=== PATIENT | female | born 1980 | race Caucasian/White ===

== ENCOUNTER 2017-10-31 10:24 | Emergency (ER) | payer OTHER ==
[~2017-10-31] VITALS: Ht 170.2 cm; Wt 69.4 kg
[2017-10-31 10:44] VITALS: BP 119/76
--- NOTE | 2017-10-31 10:50 | NUR ---
PT AMBULATED TO BED 8. REPORT GIVEN TO FIGUEROA VALADEZ.
--- NOTE | 2017-10-31 10:58 | NUR ---
36 YO F TO ER WITH CO VAGINAL BLEEDING. VAGINAL BLEEDING X8 DAYS WITH PELVIC PAIN AND VAGINAL PAIN; PT STATES SHE WAS BLEEDIG FOR 16 DAYS STARTING 09/30/17 PRIOR TO THIS EPISODE AND STOPPED FOR A WEEK AND RESTARTED BLEEDING 10/23/17, X2 PADS TODAY. PELVIC PAIN THAT RADIATES TO LLQ, TENDER ON PALPATION, BS HYOACTIVE X4, PAIN 8/10. PT DENIES ANY N/V/D. ER MD MADE AWARE. WILL CONTINUE TO MONITOR HX: HYPOTHYROID, IBS SURGICAL HX: GALLBLADDER, HERNIA
[2017-10-31] MEDS ORDERED: oxyCODONE/APAP 5/325 MG 1 TAB TAB PO ONE (11:30)
--- NOTE | 2017-10-31 11:36 | NUR ---
ULTRASOUND AT BEDSIDE
[2017-10-31 11:57] LABS: APPEARANCE,URINE HAZY (CLEAR); BILIRUBIN,URINE NEGATIVE (NEGATIVE); BLOOD, URINE 3+ (NEGATIVE); COLOR,URINE RED (YELLOW); LEUKOCYTE ESTERASE ,URINE NEGATIVE (NEGATIVE); NITRITE, URINE NEGATIVE (NEGATIVE); PH,URINE 6.5 (5.0-9.0); UGLUCOSE NEGATIVE (NEGATIVE)
[2017-10-31 12:00] LABS: PROTHROMBIN TIME 11.5 secs (10.8-13.4)
[2017-10-31 12:02] LABS: BASOPHILS % (AUTO) 0.5 % (0.0-2.0); EOSINOPHILS # (AUTO) 0.1 K/uL (0-0.4); EOSINOPHILS % (AUTO) 1.7 % (0.0-4.0); HEMATOCRIT 40.1 % (36-48); HEMOGLOBIN 13.7 g/dL (12.0-16.0); LYMPHOCYTES # (AUTO) 1.2 K/uL (2.5-16.5); LYMPHOCYTES % (AUTO) 13.4 % (20.5-51.1); MEAN CORPUSCULAR HEMOGLOBIN 30 pg (27-31); MEAN CORPUSCULAR HGB CONC 34 g/dL (33-37); MEAN CORPUSCULAR VOLUME 88.5 fL (80-94); MONOCYTES # (AUTO) 0.4 K/uL (0.8-1.0); MONOCYTES % (AUTO) 4.2 % (1.7-9.3); NEUTROPHILS # (AUTO) 6.9 K/uL (1.8-7.7); NEUTROPHILS % (AUTO) 80.2 % (42.2-75.2); PLATELET COUNT (AUTO) 135 K/uL (140-450); RED BLOOD CELL COUNT(AUTO) 4.53 MIL/uL (4.20-5.40); RED CELL DISTRIBUTION WIDTH 12.9 % (11.6-13.7); WHITE BLOOD COUNT (AUTO) 8.6 K/uL (4.8-10.8)
[2017-10-31 12:05] LABS: RBC,URINE 11-20 (MOD) /HPF (0-5); WBC,URINE 0-5 (RARE) /HPF (0-5)
--- NOTE | 2017-10-31 14:00 | NUR ---
PT RESTING IN STABLE CONDITION
[2017-10-31 15:29] VITALS: BP 99/49
--- NOTE | 2017-10-31 15:30 | NUR ---
Patient discharged with v/s stable. Written and verbal after care instructions given and explained. Patient alert, oriented and verbalized understanding of instructions. Ambulatory with steady gait. All questions addressed prior to discharge. ID band removed. Patient advised to follow up with PMD. Rx of norco, hormone given. Patient educated on indication of medication including possible reaction and side effects. Opportunity to ask questions provided and answered.
== END 2017-10-31 15:30 | disposition home or self-care (01) ==
LOC: MED 10:24
DX: N83.202 Unspecified ovarian cyst, left side (principal); N93.8 Other specified abnormal uterine and vaginal bleeding; E07.9 Disorder of thyroid, unspecified; Z88.1 Allergy status to other antibiotic agents; Z90.49 Acquired absence of other specified parts of digestive tract
CPT/HCPCS: 36415; 76830; 81001; 81025; 84702; 85025; 85610; 85730; 99285

== ENCOUNTER 2018-08-10 12:12 | Emergency (ER) | payer OTHER ==
[~2018-08-10] VITALS: Ht 170.2 cm; Wt 71.2 kg
[2018-08-10 12:15] VITALS: BP 128/99
[2018-08-10] MEDS ORDERED: KETOROLAC 60 MG/2 ML VIAL IM ONE (12:40)
--- NOTE | 2018-08-10 12:41 | NUR ---
PATIENT PRESENTS TO ED WITH C/O UMBILICAL REGION PULLING /SHARP PAIN RADIATING TO GROIN X 1 MONTH DENIES DYSURIA DENIES VAG DC OR RECENT INJURY/TRAUMA . DENIES N/V/D; SKIN IS PINK/WARM/DRY; AAOX4 WITH EVEN AND STEADY GAIT; LUNGS CLEAR BL; HR EVEN AND REGULAR; PT DENIES ANY FEVER, CP, SOB, OR COUGH AT THIS TIME; PATIENT STATES PAIN OF 9/10 AT THIS TIME; VSS; PATIENT POSITIONED FOR COMFORT; HOB ELEVATED; BEDRAILS UP X2; BED DOWN. ER MD MADE AWARE OF PT STATUS.
--- NOTE | 2018-08-10 13:15 | NUR ---
ULTRASOUND AT BEDSIDE
[2018-08-10 15:05] VITALS: BP 127/72
--- NOTE | 2018-08-10 15:05 | NUR ---
Patient discharged with v/s stable. Written and verbal after care instructions given and explained. Patient alert, oriented and verbalized understanding of instructions. Ambulatory with steady gait. All questions addressed prior to discharge. ID band removed. Patient advised to follow up with PMD. Rx of NORCO AND NAPROSYN given. Patient educated on indication of medication including possible reaction and side effects. Opportunity to ask questions provided and answered.
== END 2018-08-10 15:05 | disposition home or self-care (01) ==
LOC: MED 12:12
DX: N83.201 Unspecified ovarian cyst, right side (principal); I10 Essential (primary) hypertension; E05.90 Thyrotoxicosis, unspecified without thyrotoxic crisis or storm; F17.200 Nicotine dependence, unspecified, uncomplicated; Z90.49 Acquired absence of other specified parts of digestive tract; Z88.1 Allergy status to other antibiotic agents
CPT/HCPCS: 76830; 81002; 81025; 93976; 96372; 99284; J1885; Q0092

== ENCOUNTER 2018-10-13 21:36 | Emergency (ER) | payer OTHER ==
[~2018-10-13] VITALS: Ht 152.4 cm; Wt 70.3 kg
[2018-10-13 22:00] VITALS: BP 111/66
--- NOTE | 2018-10-13 22:02 | NUR ---
37 Y/O FEMALE PRESENTS TO ED WITH C/O LLQ ABD PAIN X1 DAY. ALSO C/O NAUSEA WITHOUT VOMITING. 8/10 PAIN. VSS. NO PAST MEDICAL HX. X4 QUADRANT BOWEL SOUNDS PRESENT. NO CHANGE IN URINATION. POSITIONED IN BED FOR COMFORT. ER MD AWARE. CONTINUE TO MONITOR.
--- NOTE | 2018-10-13 22:02 | NUR ---
TO LOBBY A/W BED, AMBULATORY
[2018-10-13] MEDS ORDERED: NACL 0.9% 1,000 ML IV ONE (22:58)
[2018-10-13] MEDS ORDERED: ONDANSETRON 4 MG/2 ML VIAL IVP ONE (23:00)
[2018-10-13] MEDS ORDERED: KETOROLAC 30 MG/ML VIAL IVP ONE (23:00)
[2018-10-13 23:30] LABS: BASOPHILS # (AUTO) 0.1 K/uL (0.00-0.22); BASOPHILS % (AUTO) 0.8 % (0.0-2.0); EOSINOPHILS # (AUTO) 0.2 K/uL (0-0.4); EOSINOPHILS % (AUTO) 3.1 % (0.0-4.0); HEMATOCRIT 37.5 % (36-48); HEMOGLOBIN 12.9 g/dL (12.0-16.0); LYMPHOCYTES # (AUTO) 1.9 K/uL (2.5-16.5); LYMPHOCYTES % (AUTO) 27.7 % (20.5-51.1); MEAN CORPUSCULAR HEMOGLOBIN 31 pg (27-31); MEAN CORPUSCULAR HGB CONC 35 g/dL (33-37); MEAN CORPUSCULAR VOLUME 89.3 fL (80-94); MONOCYTES # (AUTO) 0.3 K/uL (0.8-1.0); MONOCYTES % (AUTO) 4.8 % (1.7-9.3); NEUTROPHILS # (AUTO) 4.4 K/uL (1.8-7.7); NEUTROPHILS % (AUTO) 63.6 % (42.2-75.2); PLATELET COUNT (AUTO) 150 K/uL (140-450); RED CELL DISTRIBUTION WIDTH 12.8 % (11.6-13.7); WHITE BLOOD COUNT (AUTO) 6.9 K/uL (4.8-10.8)
[2018-10-13 23:38] LABS: ANION GAP 11.4 (8-16); CARBON DIOXIDE 28.6 mmol/L (21-32); CREATININE 0.7 mg/dL (0.6-1.3)
[2018-10-13 23:45] LABS: ALBUMIN 3.5 g/dL (3.4-5.0); TOTAL BILIRUBIN 0.3 mg/dL (0.0-1.0)
[2018-10-14 00:25] VITALS: BP 112/64
--- NOTE | 2018-10-14 00:25 | NUR ---
Patient discharged with v/s stable. Written and verbal after care instructions given and explained. Patient alert, oriented and verbalized understanding of instructions. Ambulatory with steady gait. All questions addressed prior to discharge. ID band removed. Patient advised to follow up with PMD. Rx of MIRALAX AND MINERAL OIL given. Patient educated on indication of medication including possible reaction and side effects. Opportunity to ask questions provided and answered.
== END 2018-10-14 00:25 | disposition home or self-care (01) ==
LOC: MED 21:36
DX: R10.9 Unspecified abdominal pain (principal); R11.0 Nausea; R63.0 Anorexia; I10 Essential (primary) hypertension; E03.9 Hypothyroidism, unspecified; Z90.49 Acquired absence of other specified parts of digestive tract; Z88.1 Allergy status to other antibiotic agents
CPT/HCPCS: 36415; 74176; 80053; 81002; 81025; 85025; 96374; 96375; 99284; J1885; J2405; J7030

== ENCOUNTER 2019-01-16 12:46 | Emergency (ER) | payer OTHER ==
[~2019-01-16] VITALS: Ht 167.6 cm; Wt 69.9 kg
[2019-01-16 12:51] VITALS: BP 133/101
[2019-01-16 13:18] LABS: BILIRUBIN,URINE NEGATIVE (NEGATIVE); BLOOD, URINE 3+ (NEGATIVE); COLOR,URINE YELLOW (YELLOW); LEUKOCYTE ESTERASE ,URINE TRACE (NEGATIVE); NITRITE, URINE NEGATIVE (NEGATIVE); UGLUCOSE NEGATIVE (NEGATIVE)
[2019-01-16 13:26] LABS: APPEARANCE,URINE HAZY (CLEAR)
[2019-01-16 13:30] LABS: WBC,URINE 0-5 /HPF (0-5)
[2019-01-16 13:59] VITALS: BP 133/101
== END 2019-01-16 13:57 | disposition home or self-care (01) ==
LOC: MED 12:46
DX: N39.0 Urinary tract infection, site not specified (principal); I10 Essential (primary) hypertension; E03.9 Hypothyroidism, unspecified; F17.210 Nicotine dependence, cigarettes, uncomplicated; Z90.49 Acquired absence of other specified parts of digestive tract; Z98.890 Other specified postprocedural states; Z88.1 Allergy status to other antibiotic agents
CPT/HCPCS: 81001; 81025; 99283

== ENCOUNTER 2020-08-16 13:13 | Emergency (ER) | payer OTHER ==
[~2020-08-16] VITALS: Ht 170.2 cm; Wt 72.1 kg
[2020-08-16 13:22] VITALS: BP 118/72
--- NOTE | 2020-08-16 13:24 | NUR ---
PT SENT TO LOBBY TO WAIT FOR AVAILABLE BED.
--- NOTE | 2020-08-16 13:45 | NUR ---
Patient ambulated to bed 11 with a steady gait.
--- NOTE | 2020-08-16 13:50 | NUR ---
Patient is a 39 y/o female c/c neck pain for over a month. Pain is constant, 7/10 today. Patient denies injury or trauma. Patient denies CP, SOB, headache, dizziness or blurry vision. PMH: Rheumatoid arthritis, Sjogren's syndrom, Hysterectomy 2019 Meds: Folic acid, Prednisone 5mg, Pilocarpin, Hydroxychloroquin 200mg, Sulfasalazine, Allergies: Cephalexin
[2020-08-16] MEDS ORDERED: KETOROLAC 30 MG/ML VIAL IM ONE (14:45)
--- NOTE | 2020-08-16 15:15 | NUR ---
Patient returned from x-ray. RN reevaluating the patient at bedside.
[2020-08-16] MEDS ORDERED: IBUP-2213 PO (15:46)
[2020-08-16 15:58] VITALS: BP 118/72
== END 2020-08-16 15:59 | disposition home or self-care (01) ==
LOC: MED 13:13
DX: S16.1XXA Strain of muscle, fascia and tendon at neck level, initial encounter (principal); I10 Essential (primary) hypertension; E03.9 Hypothyroidism, unspecified; Z90.49 Acquired absence of other specified parts of digestive tract; X58.XXXA Exposure to other specified factors, initial encounter; Y93.89 Activity, other specified; Y92.89 Other specified places as the place of occurrence of the external cause; Y99.8 Other external cause status
CPT/HCPCS: 72040; 96372; 99283; J1885

== ENCOUNTER 2021-01-28 15:44 | Emergency (ER) | payer OTHER ==
[~2021-01-28] VITALS: Ht 165.1 cm; Wt 75.3 kg
[~2021-01-28 15:44] MED LIST: IBUP-2213 PO
[2021-01-28 15:50] VITALS: BP 104/79
--- NOTE | 2021-01-28 15:55 | NUR ---
40 YO FEMALE BIBS C/O 9/10 BACK PAIN X2DAYS, PAIN WORSENED THIS MORNING. PATIENT DESCRIBES PAIN THROBBING, THAT RADIATES DOWN RIGHT LEG. DENIES URINARY S/S. PLACED IN GOWN, URINE SAMPLE COLLECTED. PATIENT IS A&OX4, VSS. PMH RHEUMATOID ARTHRITIS ALLERGIES CEPHALEXIN
[2021-01-28] MEDS ORDERED: CYCLOBENZAPRINE 10 MG TAB PO ONE (16:05)
[2021-01-28] MEDS ORDERED: KETOROLAC 30 MG/ML VIAL IM ONE (16:05)
[2021-01-28] MEDS ORDERED: LIDO1ADH47 TP (16:53)
[2021-01-28] MEDS ORDERED: ACET-8386 PO (16:53)
--- NOTE | 2021-01-28 17:13 | NUR ---
Patient discharged with v/s stable. Written and verbal after care instructions given and explained. Patient alert, oriented and verbalized understanding of instructions. Ambulatory with steady gait. All questions addressed prior to discharge. ID band removed. Patient advised to follow up with PMD. Rx of NORCO, LIDOCAINE PATCH given. Patient educated on indication of medication including possible reaction and side effects. Opportunity to ask questions provided and answered.
== END 2021-01-28 17:13 | disposition home or self-care (01) ==
LOC: MED 15:44
DX: M54.30 Sciatica, unspecified side (principal); G89.29 Other chronic pain; M54.9 Dorsalgia, unspecified; I10 Essential (primary) hypertension; E03.9 Hypothyroidism, unspecified; Z88.1 Allergy status to other antibiotic agents
CPT/HCPCS: 81002; 81025; 96372; 99283; J1885

== ENCOUNTER 2021-07-04 10:34 | Emergency (ER) | payer OTHER ==
[~2021-07-04] VITALS: Ht 170.2 cm; Wt 75.3 kg
[~2021-07-04 10:34] MED LIST changes: +ACET-8386 PO; +LIDO1ADH47 TP
[2021-07-04 10:38] VITALS: BP 137/99
[2021-07-04] MEDS ORDERED: KETOROLAC 30 MG/ML VIAL IVP ONE (10:45)
--- NOTE | 2021-07-04 11:00 | NUR ---
DR FLAHERTY AT BEDSIDE.
[2021-07-04] MEDS ORDERED: ONDANSETRON 4 MG/2 ML VIAL IVP ONE (11:25)
[2021-07-04] MEDS ORDERED: ONDA8TAB87 PO (11:32)
[2021-07-04] MEDS: NACL 0.9% 1,000 ML IV SCH ×2 (11:32→11:33)
[2021-07-04] MEDS ORDERED: IBUP-2213 PO (11:32)
[2021-07-04] MEDS ORDERED: CIPR500T4 PO (11:32)
--- NOTE | 2021-07-04 11:41 | NUR ---
40 Y/O F C/O LOWER ABD PAIN 7/10 FOR 3 DAYS. PAIN RADIATES TO LOWER BACK. PT STATED SHE FELT "LITTLE SPACED" THIS MORNING. PT ALSO C/O FREQUENT URINATION. ALLERGIES: CEPHALEXIN PMH: RHEUMATOID ARTHRITIS, IBS, HYSTERECTOMY
--- NOTE | 2021-07-04 11:42 | NUR ---
40/F BIB SELF WITH C/O LOWER ABDOMINAL PAIN RADIATING TO HER LOWER BACK X3 DAYS. PATIENT DENIES TAKING ANYTHING FOR HER SYMPTOMS, STATES SHE HAS BEEN HAVING FREQUENT URINATION, DENIES DYSURIA, HEMATURIA, FEVER, CHILLS, N/V/D.
--- NOTE | 2021-07-04 11:55 | NUR ---
Patient discharged with v/s stable. Written and verbal after care instructions given and explained. Patient alert, oriented and verbalized understanding of instructions. Ambulatory with steady gait. All questions addressed prior to discharge. ID band removed. Patient advised to follow up with PMD. Rx of IBUPROFEN, ONDANSETRON HCI, CIPROFLOXACIN given. Opportunity to ask questions provided and answered.
--- NOTE | 2021-07-04 11:55 | NUR ---
The patient's care was reviewed and supervised by Maye Taveras RN.
== END 2021-07-04 11:55 | disposition home or self-care (01) ==
LOC: MED 10:34
DX: N39.0 Urinary tract infection, site not specified (principal); R11.0 Nausea; F17.200 Nicotine dependence, unspecified, uncomplicated; E03.9 Hypothyroidism, unspecified; Z90.49 Acquired absence of other specified parts of digestive tract; Z90.710 Acquired absence of both cervix and uterus; Z88.1 Allergy status to other antibiotic agents; Z79.899 Other long term (current) drug therapy
CPT/HCPCS: 81002; 81025; 96361; 96374; 96375; 99284; J1885; J2405; J7030

== ENCOUNTER 2021-10-15 10:51 | Emergency (ER) | payer OTHER ==
[~2021-10-15] VITALS: Ht 170.2 cm; Wt 73.9 kg
[~2021-10-15 10:51] MED LIST changes: +CIPR500T4 PO; +ONDA8TAB87 PO
[2021-10-15 10:59] VITALS: BP 116/95
--- NOTE | 2021-10-15 11:09 | NUR ---
PT AMB TO BED 10.
--- NOTE | 2021-10-15 11:18 | NUR ---
XR AT PT BEDSIDE
--- NOTE | 2021-10-15 11:22 | NUR ---
40 Y/O FEMALE BIB SELF C/O COUGH, CHILLS, MID CHEST PAIN, SORE THROAT, BOWSER , CONGESTION, BODY ACHES X 2 DAYS. 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 PT HAD COVID TESTED NEGATIVE 2 DAYS AGO. PT STATES SHE HAS SOB, MILD CHEST PAIN, NON-PRODUCTIVE COUGH. PT O2 SAT 96% ROOM AIR. PATIENT PLACE ON MONITOR. BED LOCKED IN LOWEST POSITION, BED RAILX 1. PMH: ZAIRA PEREZROGENS
[2021-10-15] MEDS ORDERED: HYDROcodone/APAP 5/325 MG 1 TAB TAB PO ONE (11:55)
--- NOTE | 2021-10-15 12:26 | NUR ---
FLU/COVID COLLINS SWABS COLLECTED AND HANDED TO LAB
[2021-10-15] MEDS ORDERED: TRAM50TA1 PO (13:29)
[2021-10-15] MEDS ORDERED: ONDA-188 PO (13:29)
[2021-10-15] MEDS ORDERED: TAM75 PO (13:29)
[2021-10-15 13:55] VITALS: BP 132/74
--- NOTE | 2021-10-15 14:38 | NUR ---
Patient discharged with v/s stable. Written and verbal after care instructions given and explained. Patient alert, oriented and verbalized understanding of instructions. Ambulatory with steady gait. All questions addressed prior to discharge. ID band removed. Patient advised to follow up with PMD. Rx of ZOFRAN, TAMIFLU, ULTRAM given. Patient educated on indication of medication including possible reaction and side effects. Opportunity to ask questions provided and answered.
== END 2021-10-15 14:38 | disposition home or self-care (01) ==
LOC: MED 10:51
DX: J11.1 Influenza due to unidentified influenza virus with other respiratory manifestations (principal); Z20.822 Contact with and (suspected) exposure to COVID-19; E03.9 Hypothyroidism, unspecified; M06.9 Rheumatoid arthritis, unspecified; F17.210 Nicotine dependence, cigarettes, uncomplicated; Z71.6 Tobacco abuse counseling; Z90.49 Acquired absence of other specified parts of digestive tract; Z90.710 Acquired absence of both cervix and uterus; Z98.890 Other specified postprocedural states; Z79.899 Other long term (current) drug therapy; Z79.1 Long term (current) use of non-steroidal anti-inflammatories (NSAID); Z79.2 Long term (current) use of antibiotics; Z79.891 Long term (current) use of opiate analgesic; Z88.1 Allergy status to other antibiotic agents
CPT/HCPCS: 71045; 87426; 87804; 99284; Q0092

== ENCOUNTER 2022-01-15 20:12 | Emergency (ER) | payer OTHER ==
[~2022-01-15] VITALS: Ht 170.2 cm; Wt 72.6 kg
[~2022-01-15 20:12] MED LIST changes: +ONDA-188 PO; +TAM75 PO; +TRAM50TA1 PO
[2022-01-15 20:13] VITALS: BP 108/60
--- NOTE | 2022-01-15 20:13 | NUR ---
PT BIBA ALS TO BED 11
--- NOTE | 2022-01-15 20:20 | NUR ---
PT BIBA FOR ALLERGIC REACTION, EMS PLACED PT IN BED 11, PT PLACED ON FLAVORING OIL FILTERER, PT C/O HIVES ON BACK AND THROAT SWELLING AFTER EATING PASTA, EMS ADMINISTERED 25MG BENADRYL, 0.3 EPI IM, AND 4 MG ZOFRAN PRIOR TO ARRIVAL, PT SPEAKING IN COMPLETE SENTENCES, SLIGHT HIVES ON BACK, AND THROAT PAIN, THROAT FEELS ALOT BETTER WITH MEDICATIONS. HX- RA
[2022-01-15] MEDS ORDERED: PRED20TA5 PO (20:47)
[2022-01-15] MEDS ORDERED: EPIN1KIT31 IM (20:47)
[2022-01-15 20:58] VITALS: BP 110/64
--- NOTE | 2022-01-15 20:58 | NUR ---
Patient discharged with v/s stable. Written and verbal after care instructions given and explained. Patient verbalized understanding. Ambulatory with steady gait. All questions addressed prior to discharge. Advised to follow up with PMD.
== END 2022-01-15 20:55 | disposition home or self-care (01) ==
LOC: MED 20:12
DX: T78.1XXA Other adverse food reactions, not elsewhere classified, initial encounter (principal); X58.XXXA Exposure to other specified factors, initial encounter; E03.9 Hypothyroidism, unspecified; M06.9 Rheumatoid arthritis, unspecified; F17.210 Nicotine dependence, cigarettes, uncomplicated; Z90.49 Acquired absence of other specified parts of digestive tract; Z90.710 Acquired absence of both cervix and uterus; Z98.890 Other specified postprocedural states; Z79.891 Long term (current) use of opiate analgesic; Z79.899 Other long term (current) drug therapy; Z79.1 Long term (current) use of non-steroidal anti-inflammatories (NSAID); Z79.2 Long term (current) use of antibiotics; Z88.1 Allergy status to other antibiotic agents
CPT/HCPCS: 99283

== ENCOUNTER 2022-03-09 15:28 | Emergency (ER) | payer OTHER ==
[~2022-03-09] VITALS: Ht 170.2 cm; Wt 74.4 kg
[~2022-03-09 15:28] MED LIST changes: +EPIN1KIT31 IM; +PRED20TA5 PO; +TRAM-748 PO; -TRAM50TA1 PO
[2022-03-09 15:34] VITALS: BP 125/90
--- NOTE | 2022-03-09 16:50 | NUR ---
c/o left leg and low back painx"months", per pt noted increased pain x5days allergy:KEFLEX pmh: RA, SJOGREN'S SYNDROME
[2022-03-09] MEDS ORDERED: KETOROLAC 30 MG/ML VIAL IM ONE (17:10)
[2022-03-09] MEDS ORDERED: CAPS1ADH5 TP (17:33)
[2022-03-09] MEDS ORDERED: NAPR-1704 PO (17:33)
--- NOTE | 2022-03-09 17:49 | NUR ---
Patient discharged with v/s stable. Written and verbal after care instructions FOR DEGENERATIVE DISK DISEASE AND SCIATICA given and explained. Patient alert, oriented and verbalized understanding of instructions. Ambulatory with steady gait. All questions addressed prior to discharge. ID band removed. Patient advised to follow up with PMD. Rx of NAPROXEN AND SALONPAS GEL HOT PATCH given. Opportunity to ask questions provided and answered.
--- NOTE | 2022-03-09 17:55 | NUR ---
The patient's care was reviewed and supervised by [facility], RN.
== END 2022-03-09 17:49 | disposition home or self-care (01) ==
LOC: MED 15:28
DX: M54.40 Lumbago with sciatica, unspecified side (principal); M51.36 Other intervertebral disc degeneration, lumbar region; E03.9 Hypothyroidism, unspecified; Z79.899 Other long term (current) drug therapy; Z88.1 Allergy status to other antibiotic agents; Z90.49 Acquired absence of other specified parts of digestive tract; Z98.890 Other specified postprocedural states; Z90.710 Acquired absence of both cervix and uterus
CPT/HCPCS: 72100; 81002; 81025; 96372; 99283; J1885

== ENCOUNTER 2022-04-12 10:40 | Emergency (ER) | payer OTHER ==
[~2022-04-12] VITALS: Ht 170.2 cm; Wt 74.4 kg
[~2022-04-12 10:40] MED LIST changes: +CAPS1ADH5 TP; +NAPR-1704 PO
[2022-04-12 10:52] VITALS: BP 122/76
--- NOTE | 2022-04-12 11:01 | NUR ---
PT AMB TO BED 11.
--- NOTE | 2022-04-12 11:06 | NUR ---
COVID, FLU SWABS DONE.
[2022-04-12] MEDS ORDERED: NIRM1TAB PO (12:41)
[2022-04-12 13:00] VITALS: BP 111/65
--- NOTE | 2022-04-12 13:00 | NUR ---
Patient discharged with v/s stable. Written and verbal after care instructions given and explained. Patient alert, oriented and verbalized understanding of instructions. Ambulatory with steady gait. All questions addressed prior to discharge. ID band removed. Patient advised to follow up with PMD. Rx of PAXLOVID given. Patient educated on indication of medication including possible reaction and side effects. Opportunity to ask questions provided and answered.
== END 2022-04-12 13:00 | disposition home or self-care (01) ==
LOC: MED 10:40
DX: U07.1 COVID-19 (principal); J10.1 Influenza due to other identified influenza virus with other respiratory manifestations; M06.9 Rheumatoid arthritis, unspecified; F17.210 Nicotine dependence, cigarettes, uncomplicated
CPT/HCPCS: 71045; 87426; 87804; 99284; Q0092

== ENCOUNTER 2022-06-09 11:56 | Emergency (ER) | payer OTHER ==
[~2022-06-09] VITALS: Ht 170.2 cm; Wt 76.2 kg
[~2022-06-09 11:56] MED LIST changes: -ACET-8386 PO; +ACET-8905 PO; +NIRM1TAB PO
[2022-06-09 11:59] VITALS: BP 125/73
--- NOTE | 2022-06-09 12:03 | NUR ---
41 y/o female bib self from home, c/o worsening back pain after bending over to pick something up. states she has hx of sciatica, "I know they told me I have it, but I don't really believe it". states pain radiates from back to hips with minimal numbing sensation. states it is hard to sit or stand for too long. a&ox4, ambulates with steady gait. pmh: sciatica, RA allergy: cephalexin
--- NOTE | 2022-06-09 12:07 | NUR ---
pt states she has outside emergency, lwbs at this time
== END 2022-06-09 12:14 | disposition left against medical advice (07) ==
LOC: MED 11:56
DX: M54.9 Dorsalgia, unspecified (principal); Z53.21 Procedure and treatment not carried out due to patient leaving prior to being seen by health care provider

== ENCOUNTER 2023-02-02 12:04 | Emergency (ER) | payer OTHER ==
[~2023-02-02] VITALS: Ht 167.6 cm; Wt 73.9 kg
[2023-02-02 12:24] VITALS: BP 138/76; PULSE 84; RESP 18; TEMP 97.5; O2SAT 98
[2023-02-02] MEDS ORDERED: HYDROcodone/APAP 5/325 MG 1 TAB TAB PO ONE (13:40)
[2023-02-02 16:03] LABS: APPEARANCE,URINE CLEAR (CLEAR); BILIRUBIN,URINE NEGATIVE (NEGATIVE); BLOOD, URINE NEGATIVE (NEGATIVE); COLOR,URINE YELLOW (YELLOW); LEUKOCYTE ESTERASE ,URINE NEGATIVE (NEGATIVE); NITRITE, URINE NEGATIVE (NEGATIVE); PH,URINE 6.5 (5.0-9.0); PROTEIN,URINE NEGATIVE (NEGATIVE); UGLUCOSE NEGATIVE (NEGATIVE); UROBILINOGEN,URINE 0.2 EU/dL (0.2 - 1)
[2023-02-02] MEDS ORDERED: CYCL-711 PO (16:06)
[2023-02-02] MEDS ORDERED: NAPR-54 PO (16:06)
[2023-02-02] MEDS ORDERED: LID5T TP (16:06)
[2023-02-02 16:23] VITALS: BP 108/76; PULSE 71; RESP 20; TEMP 97.1; O2SAT 98
== END 2023-02-02 16:23 | disposition home or self-care (01) ==
LOC: MED 12:04
DX: M54.50 Low back pain, unspecified (principal); R32 Unspecified urinary incontinence; M06.9 Rheumatoid arthritis, unspecified; Z79.899 Other long term (current) drug therapy; Z79.1 Long term (current) use of non-steroidal anti-inflammatories (NSAID); Z79.2 Long term (current) use of antibiotics; Z88.1 Allergy status to other antibiotic agents
CPT/HCPCS: 72110; 72220; 81003; 81025; 99284

== ENCOUNTER 2023-05-21 09:02 | Emergency (ER) | payer OTHER ==
[~2023-05-21] VITALS: Ht 167.6 cm; Wt 72.6 kg
[~2023-05-21 09:02] MED LIST changes: +CYCL-711 PO; +LID5T TP; +NAPR-54 PO
[2023-05-21 09:15] VITALS: BP 128/82; PULSE 86; RESP 18; TEMP 98.1; O2SAT 98
[2023-05-21] MEDS ORDERED: PSEU120T22 PO (10:31)
[2023-05-21] MEDS ORDERED: IBUP-2213 PO (10:31)
[2023-05-21] MEDS ORDERED: PRED20TA5 PO (10:31)
[2023-05-21 10:49] VITALS: BP 122/76; PULSE 79; RESP 19; TEMP 98.2; O2SAT 98
== END 2023-05-21 10:49 | disposition home or self-care (01) ==
LOC: MED 09:02
DX: J06.9 Acute upper respiratory infection, unspecified (principal); F17.200 Nicotine dependence, unspecified, uncomplicated; Z79.899 Other long term (current) drug therapy
CPT/HCPCS: 99282